=== PATIENT | female | born 1940 | race Caucasian/White ===

== ENCOUNTER → 2019-12-11 | Outpatient (CLI) | payer MEDICARE ==
[2019-12-11 12:42] LABS: HCT 39.9 % (34.0-46.0); HGB 13.3 gm/dL (11.4-16.0); MCH 31.4 pg (25.0-35.0); MCHC 33.3 g/dL (31.0-37.0); MCV 94.5 fL (80.0-100.0); Mean Platelet Volume 7.9; Platelet Count 261 k/uL (150-450); RBC 4.22 m/uL (3.80-5.40); RDW 12.8 % (11.5-15.5); WBC 9.7 k/uL (3.8-10.6)
[2019-12-11 13:01] LABS: Potassium 4.8 mmol/L (3.5-5.1)
== END | disposition home or self-care (01) ==
LOC: LABPAT 11:02
PROVIDERS: ATTEND Internal Medicine Interventional Cardiology
DX: Z01.818 Encounter for other preprocedural examination (principal); R94.39 Abnormal result of other cardiovascular function study
CPT/HCPCS: 36415; 80051; 82565; 84520; 85027

== ENCOUNTER → 2019-12-17 | Day surgery (SDC) | payer MEDICARE ==
[2019-12-12 12:04] VITALS: BMI 31.0
[~2019-12-17] MED LIST: ALPRAZolam 0.25 MG TAB PO PRN; ALPRAZolam 0.5 MG TAB PO PRN; ASPIRIN 325 MG TAB PO ONE; ATORVASTATIN 80 MG TAB PO ONE; HEPARIN SODIUM 1,000 UN/ML (10ML VL) IV ONE; HEPARIN SODIUM 1,000 UN/ML (10ML VL) ONE; IOPAMIDOL-370 125ML BTL INJ ONE; LIDOCAINE 1% INJ 10MG/ML (20 ML MDV) ONE; LIDOCAINE 1% INJ 10MG/ML (20 ML MDV) SQ ONE; MIDAZOLAM 2 MG/2 ML VIAL IVP ONE; NITROGLYCERIN SL TABS 0.4 MG TAB SUBLINGUAL PRN; RX INFO: IV CONTRAST WAS GIVEN 1 EACH MISC MISCELLANE PRN; SODIUM CHLORIDE 0.9% 1,000 ML IV SCH; SODIUM CHLORIDE 0.9% 1,000 ML in EMPTY BAG 1 BAG IV ONE; VERAPAMIL 2.5 MG/ML 2 ML AMP ONE; VERAPAMIL SYRINGE (5 MG/10 ML) INTRAARTER ONE; fentaNYL (PF) 50 MCG/ML 2 ML AMP IVP ONE; fentaNYL (PF) 50 MCG/ML 2 ML AMP ONE
[2019-12-17 10:56] VITALS: PULSE 62; RESP 18
--- NOTE | 2019-12-17 14:42 | CC ---
CARDIAC CATHETERIZATION REPORT DATE OF SERVICE: 12/17/2019 PERFORMING PHYSICIAN: Scotty Restrepo MD. PROCEDURE PERFORMED: 1. Selective right and left coronary angiogram. 2. Left heart catheterization. INDICATION: This is a pleasant 79-year-old female patient with known history of coronary artery disease and prior coronary artery stenting of the RCA in the past and known to have intermediate lesions involving the left circumflex and LAD, was experiencing symptoms of shortness of breath with exertion concerning for the progression in the severity of her coronary artery disease. Because of that, a heart catheterization was advised. APPROACH: Right radial artery. COMPLICATION: None. LEVEL OF SEDATION: Moderate with sedation length of 12 minutes. PROCEDURE DESCRIPTION: After obtaining an informed consent, the patient was brought to the cardiac nursery laborer. The right radial artery was cannulated using micropuncture technique and a micropuncture wire passed easily, then I placed a 6-Tajik sheath at the right radial artery. After that, I gave the patient 2 mg of verapamil IA and 5000 units of heparin IV. Selective right and left coronary angiogram performed using JR4 and JL3.5 catheters. Left heart catheterization was performed using 5-Tajik pigtail catheter. The procedure was completed without any complication. SELECTIVE CORONARY ANGIOGRAM: 1. The right coronary artery is chronically occluded by the ostium and fills by collateral from the left coronary system. 2. The left main appeared to be calcified without significant disease. Bifurcates into LCX and ramus intermedius and left anterior descending artery. 3. The left circumflex is a large caliber vessel, it is a nondominant vessel. The proximal left circumflex appeared to have mild disease only and gives rise into OM1, which is a large caliber vessel with intermediate disease appeared to be in the range of 40% to 50%. 4. The ramus intermedius is an intermediate caliber vessel with mild disease only. 5. The LAD, the proximal LAD appeared to be angiographically normal. The mid LAD has intermediate lesion, appeared to be in the range of 30% to 40%. Gives rise into first diagonal branch which appeared to be angiographically normal. The LAD distally appeared to be normal. 6. HEMODYNAMICS: The LVEDP was about 10 to 12 mmHg without significant gradient across the aortic valve. CONCLUSION: 1. Calcified right and left coronary systems. 2. Chronic total occlusion of the RCA which fills by collateral from the left coronary system. 3. Mild to moderate nonobstructive disease involving the left coronary system. 4. Normal LVEDP. POSTPROCEDURE MANAGEMENT: 1. Maximize medical treatment. 2. Follow up with the patient. RACHELL / TAMMIE: [id number] /
[2019-12-17 17:05] VITALS: BP 108/56
== END ==
LOC: CATHCVL 10:30
PROVIDERS: ATTEND Internal Medicine Interventional Cardiology
DX: I25.110 Atherosclerotic heart disease of native coronary artery with unstable angina pectoris (principal); I25.84 Coronary atherosclerosis due to calcified coronary lesion; I25.82 Chronic total occlusion of coronary artery; I10 Essential (primary) hypertension; R94.39 Abnormal result of other cardiovascular function study; I08.0 Rheumatic disorders of both mitral and aortic valves; E78.5 Hyperlipidemia, unspecified; F17.200 Nicotine dependence, unspecified, uncomplicated; Z95.5 Presence of coronary angioplasty implant and graft; Z79.82 Long term (current) use of aspirin; Z79.890 Hormone replacement therapy; Z79.899 Other long term (current) drug therapy
CPT/HCPCS: 93458; C1769; C1894; J2250; J2001; J3010; J1644; Q9967

== ENCOUNTER → 2024-05-27 | Outpatient (CLI) | payer MEDICARE ==
--- NOTE | 2024-05-27 14:28 | XR ---
EXAMINATION TYPE: XR lumbar spine 2 or 3V DATE OF EXAM: 05/27/2024 2:20 PM COMPARISON: None CLINICAL INDICATION: Female, 84 years old with history of M54.50 LUMBO PAIN; PHH, pain TECHNIQUE: XR lumbar spine 2 or 3V - Frontal, lateral and coned in L5-S1 lateral views of the spine. FINDINGS: No evidence of any acute osseous pathology. No evidence of loss of vertebral body height i s seen. There is normal alignment of the lumbar vertebral bodies. Scattered disc space narrowing. Mul tilevel marginal osteophyte formation throughout the visualized spine. There is facet joint arthropat hy throughout the spine. Scattered at least mild neural foraminal stenosis. Atherosclerosis of the ar terial vasculature. Multiple calcific densities in the expected location of the ureters. Further eval uation with CT renal stone protocol may be of benefit. IMPRESSION: 1. No acute fracture. 2. Mild multilevel disc degeneration. 3. Calcifications projecting over the expected location of the ureters. Findings could represent uret eral calculi versus inspissated stool in colonic diverticula versus Further evaluation with noncontra st abdomen and pelvis recommended. [facility], , 05/27/2024 2:26 PM
== END | disposition home or self-care (01) ==
LOC: LABWHC1 13:49
PROVIDERS: ATTEND Family Medicine
DX: M51.360 Other intervertebral disc degeneration, lumbar region with discogenic back pain only (principal); N28.89 Other specified disorders of kidney and ureter
CPT/HCPCS: 72100